=== PATIENT | female | born 2000 | race Caucasian/White ===

== ENCOUNTER 2023-10-12 10:46 | Emergency (ER) | payer BC, SELFPAY ==
[2023-10-12 10:47] VITALS: BP 126/80; PULSE 89; RESP 16; TEMP 35.2; O2SAT 99; BMI 26.2
--- NOTE | 2023-10-12 10:53 | RAD_ITS ---
STUDY: X-RAY - RIGHT FOOT CLINICAL: Female, 22 years old. Fall injury TECHNIQUE: 3 view(s) of the foot. COMPARISON: None. FINDINGS: Normal talus, calcaneus, and tarsal bones. Normal visualized subtalar, talonavicular, calcaneocuboid, tarsal and tarsometatarsal articulations. Normal metatarsi. Normal metatarsophalangeal joint of the great toe. Normal tibial and fibular sesamoid bones. Normal interphalangeal joint of the great toe. Normal phalanges of the great toe. Normal second through fifth metatarsophalangeal joints. Normal interphalangeal joints and phalanges of the lesser toes. The soft tissue structures are unremarkable. RAD/Foot min 3 Views IMPRESSION: Normal x-ray examination of the foot. Electronically Signed: Ranjit Lucia MD at 12:12 [facility], [place] ,
--- NOTE | 2023-10-12 13:29 | ED.VIS.LOWEX ---
HPI History of Present Illness Chief Complaint: Fall Informant: patient and parent Narrative Narrative: Yesterday patient states she was turning while pivoting, she felt a sudden pain in her right knee, this caused her to fall and have no other injury, but she did have a pain in her knee ever since as well as some numbness and her toes. No other injury or pain. PFSH PFSH Medical History no medical history Allergy/AdvReac Type Severity Reaction Status Date / Time No Known Allergies Allergy Verified 10/12/23 13:24 Family History no significant family his Surgical History no surgical history Social History Smoking Status: Never smoker ROS ROS ED Constitutional Constitutional ED: Denies chills or fever(s) Musculoskeletal Musculoskeletal: Reports extremity pain; Denies neck pain Integumentary Denies Abrasions, rash or wounds Neurologic Neurologic: Reports paresthesias RLE; Denies weakness EXAM Physical Exam Const Vital Signs: 10/12/23 10:47 Temperature 95.4 F L Temperature Source Temporal Pulse Rate 89 Respiratory Rate 16 Blood Pressure 126/80 H Blood Pressure Mean 95 Pulse Ox 99 Oxygen Delivery Method Room Air Positive well nourished and well developed General Appearance ED: well developed and NAD Neck full ROM and supple Back/Spine normal ROM and normal to inspection Extremity normal to inspection and full ROM Extremity Narrative: Extensor mechanism intact right knee, all ligaments intact and stable with short endpoints, no significant pain focal to any particular ligament. Negative anterior posterior drawer signs. Neurovascular intact distally, subjective decrease sensation at the tibial aspect of the distal right foot but not at the peroneal aspect. Normal sensation at the plantar aspect. No other areas of tenderness except for the anterior knee and both the medial and lateral aspects, sort of diffuse but no effusion. Neuro oriented x3, no focal motor deficits and no sensory deficits noted Sensorium / Orientation: alert Psych mental status grossly normal and thought process normal Skin no wounds Rashes: no rashes MDM MDM MDM Narrative Medical decision making narrative: 4 view x-ray series of the right knee was obtained and on my interpretation is negative for acute fracture or large effusion. In triage prior to my evaluation of the patient she had three-view x-ray series of the right foot, which my interpretation is normal, radiology was in agreement. I think however, that the injury is more of the knee. The differential includes meniscus injury which I think is less likely based on the mechanism but not out of the realm of possibility. For this reason, she was given an Antonio wrap, NSAIDs, appropriate discharge instructions and follow-up with orthopedics if not improved or resolved in 1-2 weeks. Radiography Diagnostic Testing: Clinical Impression(s) from Imaging Studies Foot X-Ray 10/12/23 10:53 IMPRESSION: Normal x-ray examination of the foot. Electronically Signed: Ranjit Lucia MD at 12:12 EST , Knee X-Ray 10/12/23 13:35 IMPRESSION: Normal x-ray examination of the knee. Electronically Signed: Ranjit Lucia MD at 13:48 EST , Discharge Plan Triage Chief Complaint: Fall ED Provider: [facility] Dx/Rx/DC Orders Clinical Impression: Right knee sprain, Paresthesia of right foot Instructions: ED Bandage Elastic Wrap, ED Knee Sprain Referrals: Edmundo Kang MD [Med Staff - Active Staff] - 1 Week if not improving Activity Restrictions/Additional Instructions: Ibuprofen or Aleve as needed for pain/inflammation. Ice as needed when resting. Let pain be your guide and do not do exertional/repetitive activities that make the pain worse. Disposition Disposition: Home, Self Care
--- NOTE | 2023-10-12 13:35 | RAD_ITS ---
STUDY: X-RAY - RIGHT KNEE REASON FOR EXAM: Female, 22 years old. Pain/injury TECHNIQUE: 4 view(s) of the knee. COMPARISON: None. FINDINGS: Normal visualized distal femur. Normal visualized proximal tibia and fibula. Normal proximal tibiofibular articulation. Normal medial femorotibial compartment. Normal lateral femorotibial compartment. Normal patellofemoral articulation. The soft tissue structures are unremarkable. RAD/Knee 4 or More Views IMPRESSION: Normal x-ray examination of the knee. Electronically Signed: Ranjit Lucia MD at 13:48 EST ,
[2023-10-12] MEDS: Ibuprofen 100 MG/5 ML UDC 400 MG PO (13:47)
== END 2023-10-12 14:18 | disposition home or self-care (01) ==
PROVIDERS: Emergency Provider Emergency Medicine; Visit Provider Emergency Medicine
DX: S83.91XA Sprain of unspecified site of right knee, initial encounter (principal); W19.XXXA Unspecified fall, initial encounter; R20.2 Paresthesia of skin
CPT/HCPCS: 73564; 73630; 99282

== ENCOUNTER 2023-11-12 07:00 | Outpatient (RCR) | payer BC, SELFPAY ==
--- NOTE | 2023-11-09 17:05 | HP.PTEVAL ---
Patient's Visit Information Visit Information Visit Information: MICHELLE GANN is a 22 year old F referred to Physical Therapy by Dr. Roxana Alba MD with a diagnosis of R patella-femoral pain syndrome. Date of Evaluation: 11/09/23 Physical Therapist: El Philip, PT, ATC Visit Plan Frequency: 1x/Week Duration: 1-3 weeks Plan: Issue and instruct pt on hEP of core and R LE strengthening Subjective Subjective: Pt reports she injured her R knee 3 weeks ago while walking down her hallway at home. Pt reports she turned to go into a room when her knee popped and gave out on her which resulted in her falling. Pt reports she went to the ER where she had x-rays taken which revealed no significant findings. Pt reports she then went to her doctor where she was [id number] with patella-femoral pain syndrome. Pt reports her R knee has not given out/popped/locked up since that date of injury. Pt reports sleep difficulty at this time secondary to pain. Pt reports she works at [employer] in [place] which requires her to stand for long periods of time and is intolerable at this time. Pt denies tingling or numbness in R LE. Pt lives on the third floor of her apartment and has to negotiate stairs daily. No difficulty with stair negotiation at this time. R knee pain ranges from 2-5/10 at this time. Pain R knee: Pain Intensity (Out of 10): 2 Pain Intensity Range: 5 Objective Objective: Neuro: B LE sensation is WNL to light touch throughout. B patellar reflex= 2/3 Palpation: Pt is tender along the lateral joint line of R knee. Pain along med/lat patellar border. No crepitus with AROM. No obvious deformity present at this time. ROM: L knee 0-135 degrees; R knee 0-20-110 degrees MMT: L knee flex= 35, ext= 44 #F; R knee flex= 10, ext= 12 #F Special tests: Pos obers, pos 90/90, pos mcconnels sign Balance/Special Test Scores Lower Extremity Functional Score: 57 Goals Goal 1:: I with HEP Goal Time Frame: 4-6 Weeks Rehabilitation Potential Physical Therapy Diagnosis: Pt has R knee pain, weakness, and limited ROM secondary to R patella-femoral pain syndrome Rehabilitation Potential: Good Anticipated Interventions Patient/Client Instruction: Educate patient on: Condition and Plan of Care For the Purpose of:: To improve self management Therapeutic Exercise to Include: Strength training, Endurance training, Flexibilty training, Active ROM and Dynamic Lumbar Stabilization For the Purpose of:: To decrease pain, To increase ROM and To improve muscle performance and motor function Cryotherapy (ice pack, ice massage): Yes For the Purpose of:: To decrease pain Text: Thank you for the opportunity to evaluate your patient. For Medicare and Medicare HMO plans, please review the plan of care and approve it. It will need to be FAXED BACK to us at [phone] for Medicare purposes. For Medicare only, by signing this I certify the plan of care. Please let me know if there are questions or concerns regarding this plan of care. Physician Signature: Date:
--- NOTE | 2023-11-09 17:09 | HP.PTEVAL ---
Patient's Visit Information Visit Information Visit Information: MICHELLE GANN is a 22 year old F referred to Physical Therapy by Dr. Roxana Alba MD with a diagnosis of R patella-femoral pain syndrome. Date of Evaluation: 11/09/23 Physical Therapist: El Philip, PT, ATC Visit Plan Frequency: 1x/Week Duration: 1-3 weeks Plan: Issue and instruct pt on hEP of core and R LE strengthening Subjective Subjective: Pt reports she injured her R knee 3 weeks ago while walking down her hallway at home. Pt reports she turned to go into a room when her knee popped and gave out on her which resulted in her falling. Pt reports she went to the ER where she had x-rays taken which revealed no significant findings. Pt reports she then went to her doctor where she was [id number] with patella-femoral pain syndrome. Pt reports her R knee has not given out/popped/locked up since that date of injury. Pt reports sleep difficulty at this time secondary to pain. Pt reports she works at [employer] in [place] which requires her to stand for long periods of time and is intolerable at this time. Pt denies tingling or numbness in R LE. Pt lives on the third floor of her apartment and has to negotiate stairs daily. No difficulty with stair negotiation at this time. R knee pain ranges from 2-5/10 at this time. Pain R knee: Pain Intensity (Out of 10): 2 Pain Intensity Range: 5 Objective Objective: Neuro: B LE sensation is WNL to light touch throughout. B patellar reflex= 2/3 Palpation: Pt is tender along the lateral joint line of R knee. Pain along med/lat patellar border. No crepitus with AROM. No obvious deformity present at this time. ROM: L knee 0-135 degrees; R knee 0-20-110 degrees MMT: L knee flex= 35, ext= 44 #F; R knee flex= 10, ext= 12 #F Special tests: Pos obers, pos 90/90, pos mcconnels sign Balance/Special Test Scores Lower Extremity Functional Score: 57 Goals Goal 1:: I with HEP Goal Time Frame: 4-6 Weeks Rehabilitation Potential Physical Therapy Diagnosis: Pt has R knee pain, weakness, and limited ROM secondary to R patella-femoral pain syndrome Rehabilitation Potential: Good Anticipated Interventions Patient/Client Instruction: Educate patient on: Condition and Plan of Care For the Purpose of:: To improve self management Therapeutic Exercise to Include: Strength training, Endurance training, Flexibilty training, Active ROM and Dynamic Lumbar Stabilization For the Purpose of:: To decrease pain, To increase ROM and To improve muscle performance and motor function Cryotherapy (ice pack, ice massage): Yes For the Purpose of:: To decrease pain Text: Thank you for the opportunity to evaluate your patient. For Medicare and Medicare HMO plans, please review the plan of care and approve it. It will need to be FAXED BACK to us at [phone] for Medicare purposes. For Medicare only, by signing this I certify the plan of care. Please let me know if there are questions or concerns regarding this plan of care. Physician Signature: Date:
--- NOTE | 2023-12-23 16:09 | HP.PT.NRP ---
Patient Information Patient Information: MICHELLE GANN was seen in my office for initial evaluation on 11/09/23. The following Plan of Care was established for this patient: POC Established Initial Frequency: 1x/Week Initial Duration: 1-3 weeks Anticipated Interventions Patient/Client Instruction: Educate patient on: Condition and Plan of Care For the Purpose of:: To improve self management Therapeutic Exercise to Include: Strength training, Endurance training, Flexibilty training, Active ROM and Dynamic Lumbar Stabilization For the Purpose of:: To decrease pain, To increase ROM and To improve muscle performance and motor function Cryotherapy (ice pack, ice massage): Yes For the Purpose of:: To decrease pain Last Seen Last Seen: This patient was last seen in our office . Pertinent comments regarding their Physical therapy will appear below: Pt was treated for 2 PT visits for R knee pain through the date of 11/12/23. Pt has not returned through todays date and is discontinued at this time. At this point I will be discontinuing this patient from physical therapy. I would be happy to see this patient again in the future if found appropriate by the physician. Thank you! El Philip, PT, ATC Balance/Gait/Functional tests Balance/Special Test Scores Lower Extremity Functional Score: 57
== END 2023-11-12 19:00 | disposition home or self-care (01) ==
LOC: PT 07:00
PROVIDERS: Referring Provider Family Medicine; Visit Provider Family Medicine
DX: M22.2X1 Patellofemoral disorders, right knee (principal)
CPT/HCPCS: 97110; 97161